=== PATIENT | male | born 1980 | race Two or more races ===

== ENCOUNTER 2025-03-09 09:50 | Emergency (ER) | payer OTHER ==
[~2025-03-09] VITALS: Ht 175.3 cm; Wt 79.1 kg
[2025-03-09 11:16] VITALS: BP 124/68; PULSE 64; RESP 16; TEMP 98.4; O2SAT 97
[2025-03-09] MEDS ORDERED: IBUP1TAB5 PO (11:22)
[2025-03-09] MEDS ORDERED: MUPI2CRE17 EX (11:22)
[2025-03-09] MEDS ORDERED: CEPH500C PO (11:22)
--- NOTE | 2025-03-09 11:22 | ED.PDOC ---
History of Present Illness(SKN HPI Comments 44-YEAR-OLD MALE W/ NO MHX PRESENTS FOR A POSSIBLE INSECT BITE TO THE RIGHT FRONTAL LOBE. OCCURRED TWO DAYS AGO IN HIS SLEEP AND CONCERNED ABOUT A POSSIBLE INFECTION. DENIES ANY DRAINAGE FROM THE AFFECTED SIDE. DENIES ANY FEVERS CHILLS NAUSEA VOMITING DIARRHEA. Chief Complaint: Rash Time Seen by MD: 10:27 Primary Care Provider: NONE History of Present Illness: Nurses Notes, Medications, Allergies Allergies: Coded Allergies: Penicillins (Verified Allergy, Unknown, 03/09/25) Information Source: Patient Mode of Arrival: Ambulatory Past Medical History Surgical History: Denies all surgeries Family History Family History: Reviewed,noncontributory to illness Social History Lives In: Home All Other Systems: Reviewed and Negative (per hpi) Physical Exam General Appearance: No Apparent Distress, Normal HEENT: Normal ENT Inspection, Pharynx Normal, TMs Normal Neck: Full Range of Motion, Non-Tender, Normal, Normal Inspection Respiratory: Chest Non-Tender, Lungs Clear, No Accessory Muscle Use, No Respiratory Distress, Normal Breath Sounds Cardiovascular: No Edema, No JVD, No Murmur, No Gallop, Normal Peripheral Pulses, Regular Rate/Rhythm Breast Exam: Deferred Gastrointestinal: No Organomegaly, Non Tender, No Pulsatile Mass, Normal Bowel Sounds, Soft Genitalia: Deferred Pelvic: Deferred Rectal: Deferred Extremities: No calf tenderness, Normal capillary refill, Normal inspection, Normal range of motion, Non-tender, No pedal edema Musculoskeletal : Apperance: Normal Neurologic: Alert, curtain drier II-XII nml as Tested, No Motor Deficits, Normal Affect, Normal Mood, No Sensory Deficits Cerebellar Function: Normal Reflexes: Normal Skin: Dry, Normal Color, Warm Lymphatic: No Adenopathy Was a procedure done? Was a procedure done?: No Images 1 - Localized vesicular rash. No TTP. No surrounding erythema. No open wounds Differential Diagnosis (INTG) Differential Diagnosis: Insect Envenomation, Other Differential Diagnosis: Contact Dermatitis, Herpes Zoster/Simplex X-Ray, Labs, Meds, VS Vital Signs Date Time Temp Pulse Resp B/P (MAP) Pulse Ox O2 Delivery O2 Flow Rate FiO2 03/09/25 10:09 97.3 64 18 128/86 (100) 97 97.3 X-Ray, Labs, Meds, VS Comment Patient likely with local inflammatory response from possible insect bite/sting. No evidence of systemic reaction such as shortness of breath, diffuse rash, drooling, facial/lip swelling. Doubtful for cellulitis given no fever, minimal erythema, minimal warmth. However, will give hand-written prescription for keflex in case symptoms worsen. Patient remains with minimal symptoms. Remains hemodynamically stable. Thought safe for discharge home. Tylenol and/or motrin at home for pain. Benadryl for itchiness. Hydrocortisone for itchiness. Ice/cold compress for comfort. Follow-up with primary care doctor in 2-3 days. Return to ER as needed. Additional MDM Review of External, Non-ED records: External records reviewed. Discussion with independent historian (EMS, family) history obtained from the patient at bedside Chronic conditions affecting care: NONE Social determinants of health affecting care: NONE Consideration of admission (observation or admission): I considered escalation of care to admission for this patient, however given the reassuring workup, the patient is safe for outpatient management. Time of 1ST Reevaluation: 11:17 Reevaluation 1ST: Improved Patient Education/Counseling: Diagnosis, Treatment Family Education/Counseling: Diagnosis, Treatment Departure 1 Departure Time of Disposition: 11:19 Impression: Primary Impression: Insect bite Qualified Codes: S00.06XA - Insect bite (nonvenomous) of scalp, initial encounter; W57.XXXA - Bitten or stung by nonvenomous insect and other nonvenomous arthropods, initial encounter Disposition: 01 HOME / SELF CARE / HOMELESS Condition: Stable e-Prescriptions Cephalexin Monohydrate (Cephalexin) 500 Mg Cap 1 CAP PO QID for 7 Days, #28 CAP 0 Refills Prov: JANE FLANAGAN NP 03/09/25 Mupirocin Calcium (Topical) (MUPIROCIN) 2 % Cre 1 APPLIC EX BID for 7 Days, #5 GRAMS 0 Refills Prov: JANE FLANAGAN NP 03/09/25 Ibuprofen Micronized (Ibuprofen) 600 Mg Tab 600 MG PO TID for 10 Days, #30 TAB 0 Refills Prov: JANE FLANAGAN NP 03/09/25 Critical Care Note Critical Care Time?: No Stability Stability form required: No Heart Score Heart Score: Heart Score Response (Comments) Value History N/A 0 EKG N/A 0 Age N/A 0 Risk Factors N/A 0 Troponin N/A 0 Total 0 JANE FLANAGAN NP March 09, 2025 11:22
== END 2025-03-09 11:25 | disposition home or self-care (01) ==
LOC: ER 09:50
DX: S00.06XA Insect bite (nonvenomous) of scalp, initial encounter (principal); Z88.0 Allergy status to penicillin; W57.XXXA Bitten or stung by nonvenomous insect and other nonvenomous arthropods, initial encounter; Y93.89 Activity, other specified; Y92.89 Other specified places as the place of occurrence of the external cause; Y99.8 Other external cause status